=== PATIENT | female | born 1985 | race Caucasian/White ===

== ENCOUNTER 2017-05-26 14:31 | Emergency (ER) | payer SELFPAY ==
[~2017-05-26] VITALS: Ht 180.3 cm; Wt 63.2 kg
[~2017-05-26 14:31] MED LIST: AMOXICILLIN 50500 MG PO; CEPHALEXIN500 M1 PO; CIPRO 500MG TA500 MG PO; FLEXERIL; FLEXERIL 1010 MG/TAB PO; FLEXERIL10 MG PO; IBUPROFEN800 MG PO; LORTAB 5/500 501 TAB PO; LORTAB 7.5/5001 TAB PO; NAPROSYN PO; NAPROSYN500 MG PO; NO HOME MEDICATIONS; NORCO 325 MG-51 TAB PO; NORCO 325 MG-7.1 TAB PO; PEN-VEE K500 MG PO; PHENERGAN 25 TA25 MG PO; PHENERGAN W/CO120 ML PO; PHENERGAN25 MG RC; PREDNISONE20 MG PO; PRENATAL VITAMI1 TAB PO; REMERON30 MG PO; ZITHROMAX 250M250 MG PO
[2017-05-26 14:35] VITALS: BP 133/77; TEMP 98.6
[2017-05-26] MEDS ORDERED: HARVONI (14:39)
[2017-05-26] MEDS ORDERED: MULTI VITAMINS1 TAB PO (14:39)
[2017-05-26 15:44] LABS: BASO % 0.1 % (0.0-2.0); EOS % 0.1 % (0-4.0); GRAN # 8.3 (1.4-6.5); GRAN % 68.2 % (42.2-75.2); HEMOGLOBIN 14.7 g/dl (12.5-16.0); LYMPH # 2.6 (1.2-3.4); LYMPH % 21.4 % (20.0-51.0); MEAN CELL VOLUME 89 fl (80.0-100.0); MEAN CORPUSCULAR HEMOGLOBIN 31 pg (27.0-31.0); MEAN CORPUSCULAR HGB CONC 35 g/dl (33.0-37.0); MONO # 1.2 (0.1-0.6); MONO % 9.9 % (1.7-9.3); PLATELET COUNT 160 K/mm3 (130-400); RED BLOOD COUNT 4.74 M/mm3 (4.10-5.30); REDCELL DISTRIBUTION WIDTH-CV 11.8 % (11.5-14.5); WHITE BLOOD COUNT 12.2 K/mm3 (4.8-10.8)
[2017-05-26 15:55] LABS: ADJUSTED CALCIUM 9.7 mg/dL (8.4-10.2); ALBUMIN 4.6 gm/dL (3.5-5.0); BILIRUBIN,TOTAL 0.7 mg/dL (0.0-1.0); CALCIUM 10.2 mg/dL (8.4-10.2); CREATININE, serum 0.58 mg/dL (0.52-1.25); TOTAL PROTEIN 7.9 gm/dL (6.4-8.2)
[2017-05-26 15:56] LABS: PH 6 (5-8); URINE APPEARANCE Clear; URINE BACTERIA Rare /hpf; URINE BILIRUBIN Negative (NEGATIVE); URINE BLOOD Negative (NEGATIVE); URINE COLOR Yellow; URINE GLUCOSE Negative (NEGATIVE); URINE KETONE Negative (NEGATIVE); URINE UROBILINOGEN Negative (NEGATIVE); URINE WBC 0-2 /hpf
[2017-05-26] MEDS ORDERED: FLEXERIL 1010 MG/TAB PO (16:29)
[2017-05-26 16:44] VITALS: PULSE 78
== END 2017-05-26 16:44 | disposition home or self-care (01) ==
LOC: COL.ER 14:31
PROVIDERS: Physician Assistant
DX: M79.1 Myalgia (principal); R25.2 Cramp and spasm; M62.830 Muscle spasm of back; B19.20 Unspecified viral hepatitis C without hepatic coma; N18.9 Chronic kidney disease, unspecified; G89.29 Other chronic pain; M54.5 Low back pain; F17.210 Nicotine dependence, cigarettes, uncomplicated; Z87.19 Personal history of other diseases of the digestive system
CPT/HCPCS: J1170; J2405; J7040

== ENCOUNTER 2018-05-15 03:55 | Observation (INO) | payer SELFPAY ==
[~2018-05-15] VITALS: Ht 182.9 cm; Wt 67.5 kg
[~2018-05-15 03:55] MED LIST changes: +HARVONI; +MULTI VITAMINS1 TAB PO
[2018-05-15] MEDS ORDERED: BUSPAR DIVIDOSE15 MG PO (04:59)
[2018-05-15] MEDS ORDERED: DESYREL 50MG50 MG PO (04:59)
[2018-05-15] MEDS ORDERED: ZOLOFT 50MG50 MG PO (04:59)
[2018-05-15] MEDS ORDERED: PERIACTIN 4MG TA4 MG PO (04:59)
[2018-05-15 05:49] LABS: COLLECTION METHOD CLEAN CATCH
[2018-05-15 05:56] LABS: MUCOUS Present /lpf; PH 7 (5-8); URINE APPEARANCE Hazy; URINE BACTERIA Rare /hpf; URINE BILIRUBIN Negative (NEGATIVE); URINE BLOOD Negative (NEGATIVE); URINE COLOR Yellow; URINE GLUCOSE Negative (NEGATIVE); URINE KETONE Negative (NEGATIVE); URINE LEUKOCYTE ESTERASE Negative (NEGATIVE); URINE NITRATE Negative (NEGATIVE); URINE PROTEIN(semi-quant) Negative (NEGATIVE); URINE RBC 0-2 /hpf; URINE UROBILINOGEN Negative (NEGATIVE)
[2018-05-15 06:04] LABS: TRICYCLIC ANTIDEPRESS URINE NEGATIVE
[2018-05-15 07:41] LABS: BASO % 0.3 % (0.0-2.0); EOS # 0.1 (0.0-0.7); EOS % 1.1 % (0-4.0); GRAN # 3.2 (1.4-6.5); GRAN % 50.1 % (42.2-75.2); HEMATOCRIT 39.3 % (37.0-47.0); HEMOGLOBIN 13.8 g/dl (12.5-16.0); LYMPH # 2.7 (1.2-3.4); LYMPH % 42.1 % (20.0-51.0); MEAN CELL VOLUME 86 fl (80.0-100.0); MEAN CORPUSCULAR HEMOGLOBIN 30 pg (27.0-31.0); MEAN CORPUSCULAR HGB CONC 35 g/dl (33.0-37.0); MONO # 0.4 (0.1-0.6); MONO % 6.2 % (1.7-9.3); PLATELET COUNT 179 K/mm3 (130-400); RED BLOOD COUNT 4.56 M/mm3 (4.10-5.30); REDCELL DISTRIBUTION WIDTH-CV 12.3 % (11.5-14.5)
[2018-05-15 07:51] LABS: ANION GAP 11 mmol/L (7-16); BLOOD UREA NITROGEN 16 mg/dL (7-17); CALCIUM 9.1 mg/dL (8.4-10.2); CARBON DIOXIDE 22 mmol/L (22-30); CHLORIDE 109 mmol/L (98-107); CREATININE, serum 0.63 mg/dL (0.52-1.25); GLUCOSE 87 mg/dL (74-106); POTASSIUM 3.2 mmol/L (3.4-5.0); SODIUM 142 mmol/L (137-145)
[2018-05-15 07:52] LABS: ALCOHOL(ethanol),MEDICAL < 10 mg/dL
[2018-05-15 08:03] LABS: TROPONIN-I < 0.012 ng/mL (0.000-0.034)
[2018-05-15 08:15] VITALS: BP 129/79; PULSE 68; TEMP 98.6
[2018-05-15 11:40] VITALS: BP 124/68; PULSE 70; TEMP 98.9
[2018-05-15 16:37] VITALS: BP 119/6; BP 119/64; PULSE 67; TEMP 98.5
[2018-05-15 21:14] VITALS: BP 122/65; PULSE 102; TEMP 98.3
[2018-05-16 00:04] VITALS: BP 108/59; PULSE 70; TEMP 98
[2018-05-16 04:00] VITALS: BP 104/55; PULSE 63; TEMP 98
[2018-05-16 07:32] VITALS: BP 109/56; PULSE 61; TEMP 98.5
[2018-05-16] MEDS ORDERED: ELIQUIS 5MG PO (09:09)
[2018-05-16] MEDS ORDERED: PERIACTIN 4MG TA4 MG PO (10:28)
[2018-05-16] MEDS ORDERED: ZOLOFT 50MG50 MG PO (10:28)
[2018-05-16] MEDS ORDERED: DESYREL 50MG50 MG PO (10:28)
[2018-05-16] MEDS ORDERED: BUSPAR DIVIDOSE15 MG PO (10:28)
== END 2018-05-16 15:57 | disposition home or self-care (01) ==
LOC: COL.ER 03:55 → MEDICAL 05:48
PROVIDERS: Nurse Practitioner Family
DX: I26.99 Other pulmonary embolism without acute cor pulmonale (principal); R10.32 Left lower quadrant pain; E87.6 Hypokalemia; J45.909 Unspecified asthma, uncomplicated; K74.60 Unspecified cirrhosis of liver; B19.20 Unspecified viral hepatitis C without hepatic coma; F12.10 Cannabis abuse, uncomplicated; F17.210 Nicotine dependence, cigarettes, uncomplicated; N18.9 Chronic kidney disease, unspecified; Z90.49 Acquired absence of other specified parts of digestive tract; Z90.710 Acquired absence of both cervix and uterus; Z88.8 Allergy status to other drugs, medicaments and biological substances; Z88.2 Allergy status to sulfonamides; Z88.1 Allergy status to other antibiotic agents; Z82.49 Family history of ischemic heart disease and other diseases of the circulatory system; Z82.5 Family history of asthma and other chronic lower respiratory diseases; Z80.1 Family history of malignant neoplasm of trachea, bronchus and lung
CPT/HCPCS: G0378; J1650; J3475; J7030